=== PATIENT | female | born 1945 | race Caucasian/White ===

== ENCOUNTER 2017-01-08 19:31 | Emergency (ER) | payer MEDICARE, BC ==
[2017-01-08 20:28] VITALS: BP 156/89
--- NOTE | 2017-01-08 20:53 | EDM.PDOC ---
ED HPI GENERAL MEDICAL PROBLEM - General Chief Complaint: Bite:Animal, Insect Stated Complaint: WOODTICK Time Seen by Provider: 01/08/17 20:32 Source of Information: Reports: Patient History Limitations: Reports: No Limitations - History of Present Illness INITIAL COMMENTS - FREE TEXT/NARRATIVE: This lady comes in because of a tick bite. She noticed a tick on her abdomen today and doesn't know when the bite first happened. She denies any other symptoms. - Related Data Allergies Allergy/AdvReac Type Severity Reaction Status Date / Time No Known Allergies Allergy Verified 01/08/17 20:18 Home Meds: Home Meds Aspirin [Low Dose Aspirin EC] 81 mg PO DAILY 10/19/13 [History] Hydrochlorothiazide 25 mg PO DAILY 10/19/13 [History] Losartan [Cozaar] 50 mg PO DAILY 10/19/13 [History] atorvaSTATin Calcium [Atorvastatin Calcium] 40 mg PO BEDTIME 10/19/13 [History] Past Medical History HEENT History: Reports: Impaired Vision Cardiovascular History: Reports: High Cholesterol, Hypertension Gastrointestinal History: Reports: Other (See Below) Other Gastrointestinal History: diverticulitis, inflammatory colon polyps [employer] TABLE History: Reports: Musculoskeletal History: Reports: Back Pain, Chronic, Osteoarthritis Neurological History: Reports: Other (See Below) Other Neuro History: carotid artery Endocrine/Metabolic History: Reports: Obesity/BMI 30+ - Infectious Disease History Infectious Disease History: Reports: Chicken Pox, Measles, Mumps - Past Surgical History HEENT Surgical History: Reports: Oral Surgery Female Surgical History: Reports: Section, D&C Oncologic Surgical History: Reports: Biopsy of Breast Social & Family History - Tobacco Use Smoking Status *Q: Never Smoker Years of Tobacco use: 25 Used Tobacco, but Quit: Yes Month Tobacco Last Used: 0 Second Hand Smoke Exposure: Yes - Alcohol Use Days Per Week of Alcohol Use: 0 - Recreational Drug Use Recreational Drug Use: No ED ROS GENERAL - Review of Systems Review Of Systems: ROS reveals no pertinent complaints other than HPI. ED EXAM, ANIMAL BITE - Physical Exam Exam: See Below Exam Limited By: No Limitations General Appearance: Alert, WD/WN, No Apparent Distress Skin Exam: Other (There is a small deer tick embedded in the skin of the upper abdomen in approximately there right anterior axillary line. There is no surrounding erythema. There is no rash anywhere.) Course - Vital Signs Last Recorded V/S: Last Vital Signs Temp 36.7 C 01/08/17 20:23 Pulse 87 01/08/17 20:23 Resp 14 01/08/17 20:23 BP 156/89 H 01/08/17 20:23 Pulse Ox 98 01/08/17 20:23 - Re-Assessments/Exams Free Text/Narrative Re-Assessment/Exam: 01/08/17 20:48 The tick was easily removed using splinter forceps. The tick is small and the head may still be embedded but does not need to be removed. Departure - Departure Time of Disposition: 20:50 Disposition: Home, Self-Care 01 Condition: fair Clinical Impression: Tick bite of abdomen - Discharge Information Forms: ED Department Discharge Additional Instructions: Take the antibiotic doxycycline 100 mg twice daily. Even a course of 3-5 days should be sufficient to prevent any tickborne illnesses. The tick did appear to be a deer tick which can carry Lyme disease
== END 2017-01-08 21:22 | disposition home or self-care (01) ==
LOC: JP.ED 19:31
DX: S30.861A Insect bite (nonvenomous) of abdominal wall, initial encounter (principal); H54.7 Unspecified visual loss; I10 Essential (primary) hypertension; E78.00 Pure hypercholesterolemia, unspecified; M19.90 Unspecified osteoarthritis, unspecified site; E66.9 Obesity, unspecified; Z68.31 Body mass index [BMI] 31.0-31.9, adult; Z79.82 Long term (current) use of aspirin; Z79.899 Other long term (current) drug therapy; Z98.890 Other specified postprocedural states; W57.XXXA Bitten or stung by nonvenomous insect and other nonvenomous arthropods, initial encounter
CPT/HCPCS: 99282; 99283

== ENCOUNTER 2022-06-11 09:26 | Day surgery (SDC) | payer MEDICARE, BC ==
[2022-06-11] MEDS ORDERED: Sodium Chloride 0.9% 1,000 ML IV SCH (09:45)
[2022-06-11] MEDS ORDERED: fentaNYL 100 MCG/2 ML SDV ONE (09:52)
[2022-06-11] MEDS ORDERED: Propofol 200 MG/20 ML SDV ONE (09:52)
[2022-06-11 12:40] VITALS: BP 133/61; PULSE 75
== END 2022-06-11 12:43 | disposition home or self-care (01) ==
LOC: JP.SDS 09:26
PROVIDERS: ATTEND Surgery
DX: Z12.11 Encounter for screening for malignant neoplasm of colon (principal); K63.5 Polyp of colon; K57.30 Diverticulosis of large intestine without perforation or abscess without bleeding; I10 Essential (primary) hypertension; E78.5 Hyperlipidemia, unspecified; E11.9 Type 2 diabetes mellitus without complications; E66.9 Obesity, unspecified; Z68.36 Body mass index [BMI] 36.0-36.9, adult; Z79.899 Other long term (current) drug therapy; Z86.010 Personal history of colon polyps
CPT/HCPCS: 45380; J2704; J3010; J7030; 88305